=== PATIENT | female | born 1970 | race Caucasian/White ===

== ENCOUNTER 2023-09-19 16:32 | Emergency (ER) | payer BC, SELFPAY ==
--- NOTE | 2023-09-19 16:44 | PC.NURSE ---
pt up to desk stating that she cant stand someone in the lobby talking on the phone and is afraid to get covid from all the people. states is going to another hospital
== END 2023-09-19 16:44 | disposition left against medical advice (07) ==
PROVIDERS: PCP Internal Medicine
DX: Z53.21 Procedure and treatment not carried out due to patient leaving prior to being seen by health care provider (principal)
CPT/HCPCS: 99199

== ENCOUNTER 2023-09-20 08:26 | Inpatient (IN) | payer OTHER, SELFPAY ==
--- NOTE | ~2023-09-20 | MR_ITS ---
MRI of the abdomen: Clinical indication: Pancreatitis. Technique: Coronal SSFSE ARC, WATER:coronal LAVA-FLEX, Coronal 2D FIESTA FatSat, Axial SSFSE BH ARC, Axial 3D DualEcho BH, Axial SSFSE-IR, Axial DWI b=500, Axial 2D FIESTA FatSat, pre and dynamic postco ntrast Axial LAVA ARC, postcontrast Coronal In and Opposed phase LAVA FLEX. Following intravenous adm inistration of 11 cc MultiHance gadolinium, T1-weighted fat-sat imaging was performed in the axial an d coronal planes. Correlation made with CT scan dated 09/20/2023. Findings: There is diffuse signal drop off in the liver on out of phase images relative to in phase i mages, consistent with diffuse fatty infiltration. No focal hepatic mass seen. Gallbladder is distend ed, without evidence of gallstone or wall thickening. Common bile duct demonstrates mild diffuse dila tation at 8 mm, with tapering distally. There is probable mild inflammatory change about, and fullnes s of the the pancreatic head, consistent with acute pancreatitis. No pancreatic necrosis evident. No pseudocyst evident. Pancreatic duct is nondilated. Spleen, adrenal glands, and kidneys are unremarkable. Impression: Fullness of the pancreatic head with mild inflammatory change, suggestive of acute pancreatitis. Panc reatic neoplasm felt to be less likely. Correlate clinically. Consider follow-up exam as indicated. Diffuse fatty infiltration of liver. Distended gallbladder with mild common bile duct dilatation. This could be related to underlying acut e pancreatitis. Reviewed, dictated and finalized at location . [facility]Y Impression: Fullness of the pancreatic head with mild inflammatory change, suggestive of ac cheesh-na pancreatitis. Pancreatic neoplasm felt to be less likely. Correlate clinica lly. Consider follow-up exam as indicated. Diffuse fatty infiltration of liver. Distended gallbladder with mild common bile duct dilatation. This could be rela lazaro to underlying acute pancreatitis.
--- NOTE | ~2023-09-20 | US_ITS ---
US abdomen limited INDICATION: Nausea, vomiting and diarrhea. PROCEDURE: Realtime right upper abdominal ultrasound. COMPARISON: No prior studies for comparison. FINDINGS: Pancreas is not well visualized due to bowel gas. Pancreatic duct is dilated measuring 0.56 cm. Liver echotexture is increased, consistent with fatty infiltration. There is normal directiona l flow in the portal vein. The gallbladder is normal without stones, gallbladder wall thickening or pericholecystic fluid. Comm on bile duct measures 8 mm. No sonographic Guzman's sign. IMPRESSION: 1: Mildly dilated pancreatic and common bile ducts. No obstructing stone or mass is identified. Consi jordan correlation with MRCP. 2: Hepatic steatosis. Reviewed, dictated and finalized at location B. MIXER IMPRESSION: 1: Mildly dilated pancreatic and common bile ducts. No obstructing stone or mas s is identified. Consider correlation with MRCP. 2: Hepatic steatosis.
--- NOTE | ~2023-09-20 | CT_ITS ---
EXAMINATION: CT abdomen pelvis w con DATE: 09/20/2023 14:06 INDICATION: Abdominal pain TECHNIQUE: Computed tomography (CT) of the abdomen and pelvis was performed with 100 cc Omnipaque 350 intravenous contrast. The dose-length product was 225.83 mGy-cm. Automated exposure control and iter ative reconstruction technique were employed. COMPARISON: None. FINDINGS: Lung bases are unremarkable. Heart size normal. No significant pleural or pericardial effus ion. There is thickening of the pancreatic head which is heterogeneously hypovascular with mild surro unding fatty infiltration. There is thickening of the adjacent duodenum. There are small mesenteric l ymph nodes nearby. Fatty infiltration of the liver. The spleen, adrenal glands and kidneys are normal . Gallbladder is present. Nonobstructive bowel pattern. No significant vascular abnormality. IMPRESSION: 1. Abnormal masslike thickening of the pancreatic head which is hypodense with adjacent mesenteric in filtration and duodenal thickening. Considerations include sequela of acute pancreatitis versus pancr eatic neoplasm. 2: Fatty infiltration of the liver. Reviewed, dictated and finalized at location B. R AND RECOVERY SUPERVISOR IMPRESSION: 1. Abnormal masslike thickening of the pancreatic head which is hypodense with adjacent mesenteric infiltration and duodenal thickening. Considerations includ e sequela of acute pancreatitis versus pancreatic neoplasm. 2: Fatty infiltration of the liver.
[2023-09-20 08:30] VITALS: BP 116/82; PULSE 104; RESP 20; TEMP 36.4; O2SAT 98
--- NOTE | 2023-09-20 12:32 | ED.NAVMDI ---
HPI - Nausea/Vomiting/Diarrhea General Chief complaint: Nausea/Vomiting/Diarrhea Stated complaint: NVD Time Seen by Provider: 09/20/23 11:22 Source: patient Mode of arrival: ambulatory Limitations: no limitations History of Present Illness HPI Narrative: 53 yo female with PMH breast cancer (Jul 2018) s/p double mastectomy and reconstructive surgery presents with abdominal pain of several months duration. She states it started in February and is worse when she eats, though particularly fried foods. She thought it was similar to a gallbladder attack she experienced in her 20s at which point she was told she had sludge. No cholecystectomy. Hence, why she modified her diet over the past few months. Nevertheless, she continues to experience symptoms a few times per week. Starting over the past few days, it has become more frequent and more intense. She has a decreased appetite and hasn't eaten in 3 days. She trialed milk of magnesia. Bending at the waist or lying in the position helps slightly. Pain radiates to the left and through the back. She has the urge to have a bowel movement but without stooling. No fevers though she is going through menopause so experiences hot flashes. She had a stool that was white mucous, no blood. Related Data Home Medications Medication Instructions Recorded Confirmed No Home Medications 09/20/23 09/20/23 Allergies Allergy/AdvReac Type Severity Reaction Status Date / Time No Known Allergies Allergy Unverified 09/20/23 18:20 [facility] Past Medical History Medical History Eczema History of breast cancer Malignant neoplasm of breast (female), unspecified site Surgical History Surgical History History of appendectomy History of bilateral mastectomy (07/2018) Family History Family History Father Family history of chronic obstructive pulmonary disease Family history of dementia Mother Family history of lung cancer Social History Social History Social History: Code status: Full code. Smoking status: Former smoker Smoking end date: 10/18/17 Alcohol intake: current Drinks per week: 6 Substance use: former Substance use type: marijuana Lack of Transportation: No Lack of Food: Never True Current Housing: I Have Housing Concerned About Future Housing: No Difficulty Paying Gas/Electric Bills: No Difficulty Paying for Meds: No Currently Unemployed: No Education: Trade/Vocational Certificate Difficulty w/ Childcare or Family Care: No Spiritual care concerns: No Exam Narrative: GENERAL: Well-appearing, well-nourished, and in no acute distress. HEAD: Normocephalic, atraumatic. EYES: PERRLA and EOMI. ENT: Nares clear, no rhinorrhea or epistaxis. NECK: Supple. CHEST: Speaksin full sentences. No respiratory distress. HEART: Tachycardic rate and rhythm. ABDOMEN: Soft, , nondistended, TTP throughout, especially LLQ and RUQ. Guzman sign negative EXTREMITIES: Normal range of motion. No edema. SKIN: Warm, dry, no rash. NEURO: No focal deficits. Alert and oriented x3. Observed ambulating with steady gait. PSYCH: Normal mood and affect. Course Vital Signs Vital signs: Vital Signs Temperature 97.5 F L 09/20/23 08:30 Pulse Rate 104 H 09/20/23 08:30 Respiratory Rate 20 09/20/23 08:30 Blood Pressure 116/82 09/20/23 08:30 Pulse Oximetry 98 09/20/23 08:30 Oxygen Delivery Room Air 09/20/23 08:30 Temperature 98 F 09/22/23 14:06 Pulse Rate 82 09/22/23 14:06 Respiratory Rate 16 09/22/23 14:06 Blood Pressure 124/71 09/22/23 14:06 Pulse Oximetry 96 09/22/23 14:06 Oxygen Delivery Room Air 09/21/23 20:00 Oxygen Flow Rate 2 09/21/23 09:45 MDM - Nausea/Vomiting/Diarrhea MDM Narrative M
--- NOTE | 2023-09-20 12:49 | ECG_ITS ---
Measurements Intervals [place] Rate: 87 P: 55 NV: 121 QRS: 71 QRSD: 86 T: 58 QT: 374 QTc: 452 Interpretive Statements SINUS RHYTHM NORMAL ELECTROCARDIOGRAM MINIMAL ST DEPRESSION [0.025+ mV ST DEPRESSION] NO PREVIOUS ECG AVAILABLE FOR COMPARISON Electronically Signed On 09-20-2023 15:29:34 MANAGER OF MEDICAL by Casper Davey M.D.
[2023-09-20] MEDS: ONDANSETRON INJ 4 MG/2 ML VIAL IV PUSH (13:30)
[2023-09-20] MEDS: SODIUM CHLORIDE 0.9% IV 1,000 ML 999 ML IV CONT (13:30)
[2023-09-20 13:31] LABS: Basophils Absolute Auto 0.1 K/mm3 (0.0-0.1); Basophils Percent Auto 0.7 % (0.2-1.2); Eosinophils Absolute Auto 0.1 K/mm3 (0-0.3); Eosinophils Percent Auto 1.3 % (0-4.4); Hematocrit 41.8 % (37.0-47.0); Immature Granulocyte Absolute 0.03 K/mm3 (0.00-0.031); Immature Granulocyte Percent A 0.3 % (0-0.5); Lymphocytes Absolute Auto 1.59 K/mm3 (0.9-3.2); Lymphocytes Percent Auto 18.4 % (18.3-44.2); Mean Corpuscular HGB Conc 33.5 g/dl (32-36); Mean Corpuscular Hemoglobin 34.7 pg (26-34); Mean Corpuscular Volume 103.5 fl (80-100); Mean Platelet Volume 10.4 fl (7.4-10.4); Monocytes Absolute Auto 0.8 K/mm3 (0.1-0.6); Monocytes Percent Auto 8.9 % (2.6-8.5); Neutrophils Absolute Auto 6.1 K/mm3 (1.3-6.7); Neutrophils Percent Auto 70.4 % (45.5-73.1); Platelet Count Result 150 k/mm3 (150-375); Red Blood Count 4.04 M/mm3 (4.2-5.4); Red Cell Distribution Width 14.3 % (11.5-14.5); White Blood Count 8.6 K/mm3 (4.5-10.0)
[2023-09-20 13:40] VITALS: BP 143/84; PULSE 88; RESP 18; O2SAT 95
[2023-09-20 13:45] LABS: Alanine Aminotransferase 37 U/L (6-35); Albumin Level 3.8 g/dL (3.5-5.1); Alkaline Phosphatase 232 U/L (38-126); Anion Gap 10 mmol/L (8-16); Aspartate Amino Transferase 119 U/L (14-36); Bilirubin,Total 1.9 mg/dL (0.2-1.3); Blood Urea Nitrogen 4 mg/dL (7-17); Calcium 9.1 mg/dL (8.4-10.2); Carbon Dioxide 27 mmol/L (22-30); Chloride 101 mmol/L (98-107); Estimated CRCL calculation 116 ml/min; Estimated Glomerular Filt Rate > 60; Glucose 81 mg/dL (65-110); Lipase 1279 U/L (23-300); Potassium 3.9 mmol/L (3.4-5.0); Sodium 138 mmol/L (137-145)
[2023-09-20 13:54] LABS: Troponin I < 0.012 ng/mL (0.000-0.034)
[2023-09-20 14:07] LABS: Bacteria Urine 3+ /hpf; Need Manual Microscopic Reviewed; Non Pathogenic Casts 0-2; Squamous Epithelial Cell Urine Few /hpf (Few)
[2023-09-20 14:07] LABS: Influenza A QL RT-PCR Negative (Negative); Influenza B QL RT-PCR Negative (Negative); SARS-CoV-2 RNA PCR Negative (Negative)
[2023-09-20 14:14] LABS: Appearance Urine Cloudy (Clear); Bilirubin Urine 2+ (Negative); Blood Urine Negative (Negative); Color Urine Orange (Yellow); Glucose Urine UA Negative (Negative); Ketones Urine 1+ mg/dL (Negative); Leukocyte Esterase Ur 1+ LEU/UL (Negative); Nitrate Urine Positive (Negative); Protein Urine 1+ mg/dL (Negative); Specific Grav Ur 1.028 (1.001-1.035)
[2023-09-20 14:15] LABS: Add Urine Microscopic? YES
[2023-09-20] MEDS: LACTATED RINGERS 1,000 ML 150 ML IV CONT (15:14)
[2023-09-20] MEDS: MORPHINE SULFATE (*CRX) 4 MG/ML INJ IV PUSH ×3 (15:17→20:41)
--- NOTE | 2023-09-20 15:57 | PM.IMHP ---
H&P: HPI History of Present Illness Date/Time: 09/20/23 15:45 Chief Complaint: Abdominal pain. Narrative: This is a very pleasant 53-year-old female with history of breast cancer who presented to the emergency department via private vehicle for evaluation of abdominal pain. The patient provides the following history. She reports having a gallbladder attack in her 20s and had a workup at that time where she was told that she had gallbladder sludge. She did not have any further recurrences of right upper quadrant pain until this summer. She cut fatty foods and fried foods out of her diet though she continues to have intermittent episodes of right upper quadrant discomfort. Over the past 1 week she has had increasing episodes with increasing intensity. She reports a squeezing and pressure-like pain in the right upper quadrant which radiates in a bandlike fashion under her breasts. The last several days it has started to radiate into the left upper quadrant. Associated symptoms include nausea and vomiting off and on for the last several days. Food makes her pain worse. She denies alleviating factors. She denies fever, chills, sweats, chest pain, shortness of breath, hematemesis, melena, and hematochezia. Pertinent labs today include a bilirubin of 1.9, AST 119, ALT 37, alkaline phosphatase 232, lipase 1279. CT of the abdomen and pelvis showed abnormal masslike thickening of the pancreatic head which is hyperdense with adjacent mesenteric inflammation duodenal thickening which could be sequela of acute pancreatitis versus pancreatic neoplasm. She has no known history of pancreatitis. She drinks alcohol socially and in moderation. No known history of hypertriglyceridemia. She is status post bilateral mastectomy for breast cancer in July 2018 which she reports was caught early. She has lost about 4 to 5 lb in the last week or so as she has not been eating much due to pain. She is being admitted in this setting for further treatment and evaluation. Review of Systems Review of Systems: Twelve systems were reviewed and are negative except for as per HPI. [facility] Past Medical History Medical History (Updated 09/20/23 @ 22:[address] PA-C) Eczema History of breast cancer Malignant neoplasm of breast (female), unspecified site Surgical History Surgical History (Updated 09/20/23 @ 22:[address] PA-C) History of appendectomy History of bilateral mastectomy (07/2018) Family History Family History Father Family history of chronic obstructive pulmonary disease Family history of dementia Mother Family history of lung cancer Social History Social History (Updated 09/20/23 @ 22:[address] PA-C) Social History: Code status: Full code. Smoking status: Former smoker Smoking end date: 10/18/17 Alcohol intake: current Drinks per week: 6 Substance use: former Substance use type: marijuana Lack of Transportation: No Lack of Food: Never True Current Housing: I Have Housing Concerned About Future Housing: No Difficulty Paying Gas/Electric Bills: No Difficulty Paying for Meds: No Currently Unemployed: No Education: Trade/Vocational Certificate Difficulty w/ Childcare or Family Care: No Spiritual care concerns: No Meds Home Medications and Allergies Home Medications Medication Instructions Recorded Confirmed Type No Home Medications 09/20/23 09/20/23 History Allergies Allergy/AdvReac Type Severity Reaction Status Date / Time No Known Allergies Allergy Unverified 09/20/23 18:20 Vital Signs Vital Signs - 24 hr 09/20/23 08:30 09/20/23 13:40 Temperature 97.5 F L Pulse Rate 104 H 88 Respiratory Rate 20 18 Blood Pressure 116/82 143/84 H Pulse Oximetry 98 95 Oxygen Delivery Room Air Exam Narrative: General: Well-developed female sitting up in bed in mild pain. Weight: 69.4
--- NOTE | 2023-09-20 17:52 | ADMGEN ---
This patient, Ashia Lang, was admitted to [facility] Surg Room 314-02. Patient/family oriented to hospital policies and general routines including ID bracelet, bed and alarms, visiting hours, pain management, procedures, bathroom and other care routines, personal items, smoking policy, room service/diet, and visiting hours. Information on how to activate the Rapid Response Team has been discussed. Patient/Family are encouraged to report perceived risks to care and to ask questions if they do not understand what they are told or what they should do.
[2023-09-20 18:09] VITALS: BMI 24.7
[2023-09-20 18:18] VITALS: BP 116/81; PULSE 92; RESP 16; TEMP 35.7; O2SAT 100
[2023-09-20 18:32] LABS: Cholesterol 174 mg/dL (0-200); HDL Direct 72 mg/dL; Triglycerides 89 mg/dL (<150)
[2023-09-20 18:36] LABS: LDL Cholesterol Direct 80 mg/dL
[2023-09-20 20:00] VITALS: O2SAT 96
[2023-09-20 20:52] VITALS: BP 122/80; PULSE 100; RESP 16; TEMP 36.9; O2SAT 96
[2023-09-21] MEDS: SODIUM CHLORIDE 0.9% IV 1,000 ML 100 ML IV CONT (00:16)
[2023-09-21] MEDS: MORPHINE SULFATE (*CRX) 4 MG/ML INJ IV PUSH ×6 (00:18→21:24)
[2023-09-21 04:29] VITALS: BP 105/67; PULSE 102; RESP 16; TEMP 37.1; O2SAT 96
[2023-09-21 08:26] LABS: Hepatitis B Surface Antigen Negative (Negative)
[2023-09-21 08:31] LABS: HAV RESULT Negative (Negative); Hepatitis B Core IgM Result Negative (Negative)
[2023-09-21 08:43] LABS: Hepatitis C Virus Antibody Negative (Negative)
[2023-09-21 09:12] LABS: Alanine Aminotransferase 38 U/L (6-35); Albumin Level 2.9 g/dL (3.5-5.1); Alkaline Phosphatase 173 U/L (38-126); Anion Gap 9 mmol/L (8-16); Aspartate Amino Transferase 130 U/L (14-36); Bilirubin,Total 1.2 mg/dL (0.2-1.3); Blood Urea Nitrogen 4 mg/dL (7-17); Calcium 8.2 mg/dL (8.4-10.2); Carbon Dioxide 23 mmol/L (22-30); Chloride 105 mmol/L (98-107); Estimated CRCL calculation 124 ml/min; Estimated Glomerular Filt Rate > 60; Glucose 41 mg/dL (65-110); Magnesium 1.7 mg/dL (1.6-2.3); Potassium 3.8 mmol/L (3.4-5.0); Sodium 137 mmol/L (137-145)
[2023-09-21] MEDS: DEXTROSE 50% 25 GM/50 ML SYRINGE IV PUSH (09:28)
[2023-09-21 09:40] VITALS: BP 137/88; PULSE 101; RESP 22; O2SAT 93
[2023-09-21 09:45] VITALS: O2SAT 93
[2023-09-21 09:59] LABS: Folic Acid 3.5 ng/mL (2.76->20)
[2023-09-21 10:07] LABS: Glucose Point of Care 236 mg/dl (65-105)
[2023-09-21 10:07] LABS: Glucose Point of Care 53 mg/dl (65-105)
[2023-09-21 10:13] LABS: Glucose Point of Care 113 mg/dl (65-105)
[2023-09-21] MEDS: PANTOPRAZOLE SODIUM IV 40 MG VIAL IV PUSH ×2 (11:47→21:24)
[2023-09-21] MEDS: DEXTROSE 5%/0.9% SOD CHL 1,000 ML 100 ML IV CONT ×2 (11:49→21:24)
[2023-09-21 12:05] LABS: Glucose Point of Care 66 mg/dl (65-105)
[2023-09-21 12:13] VITALS: BMI 21.1
[2023-09-21 12:47] LABS: Glucose Point of Care 82 mg/dl (65-105)
[2023-09-21 14:00] VITALS: BP 121/71; PULSE 108; RESP 18; TEMP 36.8; O2SAT 93
--- NOTE | 2023-09-21 15:58 | PM.IMPN ---
Progress Note: A&P Assessment and Plan (1) Pancreatitis: Code(s): K85.90 - Acute pancreatitis without necrosis or infection, unspecified Status: Acute Assessment and Plan: 09/21/2023: abdominal ultrasound showing mildly dilated pancreatic and common bile ducts, no obstructing stone or mass was identified, hepatic steatosis, gallbladder is normal without stones. CT of the abdomen and pelvis showing abnormal masslike thickening of the pancreatic head which is hypodense with adjacent enteric infiltration and duodenal thickening, fatty infiltration of the liver MRCP showed fullness of the pancreatic head with mild inflammatory change suggestive of acute pancreatitis, pancreatic neoplasm felt to be less likely, diffuse fatty infiltration of the liver, distended gallbladder with mild common bile duct dilatation patient was given 1 dose of Rocephin in the ED we check a procalcitonin white blood cell count 8.6 (2) Elevated LFTs: Code(s): R79.89 - Other specified abnormal findings of blood chemistry Status: Acute Assessment and Plan: 09/21/23: total bili 1.2 AST 130 ALT 38 alk-phos 173 will continue to trend (3) Abnormal urinalysis: Code(s): R82.90 - Unspecified abnormal findings in urine Status: Acute Assessment and Plan: 09/21/23: UA showing 1+ protein, 1+ ketones, positive nitrate, 2+ bili, 1+ leukocytes 3+ bacteria urine culture pending patient given 1 g of Rocephin in the ED we will continue Rocephin Time Spent With Patient Time with patient: Greater than 35 minutes Subjective Date/time seen: 09/21/23 15:58 Interval history: This is a 53-year-old female who presented to the hospital on 09/20/2023 with abdominal pain. Workup in the hospital included a CT of the abdomen and pelvis which showed an abnormal masslike thickening of the pancreatic and which is hyperdense with adjacent mesenteric inflammation duodenal thickening which could be acute pancreatitis versus pancreatic neoplasm. She also had an ultrasound her abdomen which showed a mildly dilated pancreatic and common bile duct, no obstructing stone or mass are identified, hepatic steatosis. MRCP showed fullness of the pancreatic head with mild inflammation suggestive of acute pancreatitis. Pancreatic neoplasm felt to be less likely, diffuse fatty infiltration of the liver, distended gallbladder with mild common bile dilatation, this could be related to her acute pancreatitis. She has no known history of pancreatitis. She does drink alcohol socially and moderation. No known history of high triglycerides. Of note she is status post bilateral mastectomy for breast cancer in 2018 which she has states was caught early. She has lost 45 lb in the last week but attributes that to not eating and having too much pain. patient was given 1 dose of Rocephin ED. On examination today patient is alert and oriented x4, lying in the bed. Vital signs are stable, she is afebrile, she is currently on room air. She states that her pain comes and goes and currently is fine. She denies any nausea, vomiting, diarrhea, abdominal pain, fever, chills shortness breath, chest pain. Labs today were essentially unremarkable except for a blood sugar that was reported as 41 on her lab, and transaminitis with AST of 130, ALT 38, alk-phos 173. She had a rapid response called on her while in MRCP due to low blood sugar of 53. They gave her 1 amp of D 50 and her blood sugar recovered to 236. recheck was 113. Patient was started on D5 NS at 100 mL. We will continue Accu-Cheks on her. Will continue to monitor labs. We will go ahead and start a clear liquid diet as tolerated and ice chips are okay. GI is consulted. Review of Systems Review of Systems: Twelve systems were reviewed and are negative except for as per HPI. Constitutional: Constitutional: Reports as per HPI and Reports no additional constitutional complaints Eyes: Eye
--- NOTE | 2023-09-21 16:42 | PC.NURSE ---
I have reviewed Nicole Martini LPN's chart and agree with her assessment and findings. Pt had hypoglycemic event earlier today. Pt had lab value blood glucose of 41. Nurse was notified of critical lab value. Nurse reported to this nurse and was advised to recheck bedside accucheck to verify. Pt had been taken off of the floor to MRI scan. Nurse went to MRI to recheck pt blood sugar. Pt had accucheck of 53. Nurse reported result and was advised to call a rapid due to pt location and lack of resources. Pt was treated in MRI holding area by rapid response team with 1 amp D50. Pt tolerated well and responded appropriately. Pt was rechecked within 15 minutes of treatment and blood sugar was 236. During this time vitals were obtained and pt was found to be 86% on room air. Pt was placed on 2L O2 and quickly returned to normal limits. Provider was notified and new orders were put in, Q6h accucheck and D5NS@100. Pt continues to be monitored for any changes in status.
--- NOTE | 2023-09-21 17:11 | WPDGICN ---
Assessment and Plan Assessment and plan (1) Pancreatitis: Code(s): K85.90 - Acute pancreatitis without necrosis or infection, unspecified Status: Acute Assessment and Plan: Her bilirubin is 1.9 at admission. Lipase was 1279. She has been told in the past that she has sludge in her gallbladder. The attacks of pain that she has been getting for the past few months are generally in the right upper quadrant and sometimes radiate to the back (2) Elevated LFTs: Code(s): R79.89 - Other specified abnormal findings of blood chemistry Status: Acute Assessment and Plan: She has not had problems liver enzymes prior to this admission. (3) Weight loss: Code(s): R63.4 - Abnormal weight loss Status: Acute Assessment and Plan: She has lost about 5 lb in last week or 2 because of inability to eat (4) History of breast cancer: Code(s): Z85.3 - Personal history of malignant neoplasm of breast Status: Acute Assessment and Plan: She has had bilateral mastectomy. A CT scan she had shown what appeared to be a mass in the head of the pancreas but MRI suggests this is pancreatitis and not likely to be neoplastic. Plan A scribe for her how biliary sludge causes pancreatitis. We will repeat her labs tomorrow morning. I suspect that we will need to perform an ERCP because of the recurrent attacks even if numbers have improved. I discussed ERCP technique. I explained the possible complications such as bleeding or perforation or more likely pancreatitis which develops in about 3% of individuals and can be severe, can result in prolonged hospitalization and very rarely the need for surgery. GI Consult Note Consult date/time: 09/21/23 17:11 HPI: Ashia Lang is a 53 year old female who was admitted with persistent abdominal pain and nausea. She has not been able to eat for several days because of lack of appetite. She has been having episodes like this since spring of this year but has become more persistent. She has lost about 5 lb. She has not had visible jaundice. She has no history of liver disease. She has been found have pancreatitis based on elevated lipase. Liver function studies also are elevated. Ultrasound does not show evidence of common bile duct stones or gall stones, but she was told about 30 years ago when she had a similar attack that she had sludge seen on her gallbladder. Over Memorial Day weekend she was miserable with attacks of pain that made her feel like she was in labor. Since then she has had frequent episodes like this that can last for hours minutes to hours. Her pain is still requiring morphine. Review of Systems Review of Systems: All systems reviewed & are unremarkable except as noted in HPI and below PMFSH Past Medical History Medical History (Updated 09/21/23 @ 17:34 by Kelvin Holloway MD) Eczema History of breast cancer Malignant neoplasm of breast (female), unspecified site Surgical History Surgical History History of appendectomy History of bilateral mastectomy (07/2018) Family History Family History Father Family history of chronic obstructive pulmonary disease Family history of dementia Mother Family history of lung cancer Social History Social History Social History: Code status: Full code. Smoking status: Former smoker Smoking end date: 10/18/17 Alcohol intake: current Drinks per week: 6 Substance use: former Substance use type: marijuana Lack of Transportation: No Lack of Food: Never True Current Housing: I Have Housing Concerned About Future Housing: No Difficulty Paying Gas/Electric Bills: No Difficulty Paying for Meds: No Currently Unemployed: No Education: Trade/Vocational Certificate Difficulty w/ Childcare or Family
[2023-09-21 17:44] LABS: Hematocrit 35.2 % (37.0-47.0); Mean Corpuscular HGB Conc 31.3 g/dl (32-36); Mean Corpuscular Hemoglobin 34.8 pg (26-34); Mean Corpuscular Volume 111.4 fl (80-100); Platelet Count Result 128 k/mm3 (150-375); Red Blood Count 3.16 M/mm3 (4.2-5.4); Red Cell Distribution Width 14.7 % (11.5-14.5); White Blood Count 6.9 K/mm3 (4.5-10.0)
[2023-09-21 18:19] LABS: Procalcitonin 0.1 ng/mL
[2023-09-21 19:08] LABS: Glucose Point of Care 115 mg/dl (65-105)
[2023-09-21 20:00] VITALS: O2SAT 97
[2023-09-21 21:21] VITALS: BP 127/76; PULSE 95; RESP 16; TEMP 36.6; O2SAT 97
[2023-09-21 23:54] LABS: Glucose Point of Care 93 mg/dl (65-105)
[2023-09-22] MEDS: HYDROcodone/acetaminophen (*CRX) 5-325 MG TABLET 1 TAB PO ×2 (00:06→06:42)
[2023-09-22 05:40] VITALS: BP 125/79; PULSE 86; RESP 16; TEMP 36.3; O2SAT 94
[2023-09-22] MEDS: DEXTROSE 5%/0.9% SOD CHL 1,000 ML 100 ML IV CONT (06:43)
[2023-09-22 06:54] LABS: Basophils Percent Auto 0.8 % (0.2-1.2); Eosinophils Absolute Auto 0.1 K/mm3 (0-0.3); Eosinophils Percent Auto 2.1 % (0-4.4); Hematocrit 32.7 % (37.0-47.0); Hemoglobin 10.6 g/dL (12.0-15.0); Immature Granulocyte Absolute 0.01 K/mm3 (0.00-0.031); Immature Granulocyte Percent A 0.2 % (0-0.5); Lymphocytes Absolute Auto 1.14 K/mm3 (0.9-3.2); Lymphocytes Percent Auto 22.1 % (18.3-44.2); Mean Corpuscular HGB Conc 32.4 g/dl (32-36); Mean Corpuscular Hemoglobin 34.9 pg (26-34); Mean Corpuscular Volume 107.6 fl (80-100); Mean Platelet Volume 10.5 fl (7.4-10.4); Monocytes Absolute Auto 0.6 K/mm3 (0.1-0.6); Neutrophils Absolute Auto 3.3 K/mm3 (1.3-6.7); Neutrophils Percent Auto 63.8 % (45.5-73.1); Platelet Count Result 120 k/mm3 (150-375); Red Blood Count 3.04 M/mm3 (4.2-5.4); Red Cell Distribution Width 14.2 % (11.5-14.5); White Blood Count 5.2 K/mm3 (4.5-10.0)
[2023-09-22 06:58] LABS: Glucose Point of Care 98 mg/dl (65-105)
--- NOTE | 2023-09-22 07:04 | WPDGIPROGNO ---
Progress Note: A&P Assessment and Plan (1) Pancreatitis: Code(s): K85.90 - Acute pancreatitis without necrosis or infection, unspecified Status: Acute Assessment and Plan: Her bilirubin is 1.9 at admission. Lipase was 1279. She has been told in the past that she has sludge in her gallbladder. The attacks of pain that she has been getting for the past few months are generally in the right upper quadrant and sometimes radiate to the back. CT scan showed a possible pancreatic head mass. MRCP shows that it is not a pancreatic mass but pancreatitis . No definite stones are seen in the bile duct. (2) Elevated LFTs: Code(s): R79.89 - Other specified abnormal findings of blood chemistry Status: Acute Assessment and Plan: She has not had problems liver enzymes prior to this admission. Explained it elevated LFTs suggest that she has common bile duct stones. (3) Weight loss: Code(s): R63.4 - Abnormal weight loss Status: Acute Assessment and Plan: She has lost about 5 lb in last week or 2 because of inability to eat (4) History of breast cancer: Code(s): Z85.3 - Personal history of malignant neoplasm of breast Status: Acute Assessment and Plan: She has had bilateral mastectomy. A CT scan she had shown what appeared to be a mass in the head of the pancreas but MRI suggests this is pancreatitis and not likely to be neoplastic. Plan I described for her how biliary sludge causes pancreatitis. We will repeat her labs tomorrow morning. I suspect that we will need to perform an ERCP because of the recurrent attacks even if numbers have improved. I discussed ERCP technique. I explained the possible complications such as bleeding or perforation or more likely pancreatitis which develops in about 3% of individuals and can be severe, can result in prolonged hospitalization and very rarely the need for surgery. if LFTs have normalized we may simply do a HIDA scan. She wants to 1st check with her insurance because she is afraid that she will not be able to afford any more procedures. Subjective Date/time seen: 09/22/23 07:04 her pain has decreased significantly. 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 She tolerated clear liquids. I discussed with her the the fact that we would probably perform a HIDA scan or, if LFTs remain elevated go straight to ERCP. She wants to check with her insurance company regarding coverage. Exam Const: General: cooperative and healthy appearing Orientation/consciousness: patient oriented x3 HENMT: Head: normal to inspection Ears: hearing grossly normal bilaterally Mouth: Yes Normal oral and palatal mucosa present Eyes: General: appearance normal, both eyes and all related structures Neck: Neck: normal visual inspection Chest: Chest palpation & inspection: normal inspection of the chest Resp: Effort & Inspection: normal respiratory effort Auscultation: clear to auscultation bilaterally Cardio: Rate: regular rate Rhythm: regular rhythm GI: Inspection: normal to inspection GI Palp: Yes abdominal tenderness ( Mildly tender epigastric and right upper quadrant), Yes Soft to palpation and Yes No hepatosplenomegaly present Auscultation: normal bowel sounds Skin: General skin exam: normal color and no jaundice Neuro: General: patient oriented x3 Speech: normal speech Objective Data Vital Signs Vital Signs: Vital Signs - 24 hr 09/21/23 09:40 09/21/23 14:00 09/21/23 09:45 Temperature 36.8 C Pulse Rate 101 H 108 H Respiratory Rate 22 H 18 Blood Pressure 137/88 121/71 Pulse Oximetry 93 93 93 Oxygen Delivery Nasal Cannula Nasal Cannula Oxygen Flow Rate 2 2 09/21/23 21:21 09/21/23 20:00 09/22/23 05:40 Temperature 36.6 C 36.3 C L Pulse Rate 95 86 Respiratory Rate 16 16 Blood Pressure 127/76 125/79 Pulse Oximetry 97 97 94 Oxygen Delivery Room Air Oxygen
[2023-09-22 07:08] LABS: Alkaline Phosphatase 151 U/L (38-126); Lipase 210 U/L (23-300)
[2023-09-22 08:24] LABS: Glucose Point of Care 121 mg/dl (65-105)
[2023-09-22] MEDS: PANTOPRAZOLE SODIUM IV 40 MG VIAL IV PUSH (08:59)
[2023-09-22 11:58] LABS: Glucose Point of Care 114 mg/dl (65-105)
[2023-09-22 14:06] VITALS: BP 124/71; PULSE 82; RESP 16; TEMP 36.6; O2SAT 96
--- NOTE | 2023-09-22 14:51 | PM.CNGS ---
Assessment and Plan Assessment and plan (1) Pancreatitis: Code(s): K85.90 - Acute pancreatitis without necrosis or infection, unspecified Status: Acute Assessment and Plan: Patient presenting with acute pancreatitis. Unclear etiology. No heavy alcohol use. Triglycerides are normal. She has had an abdominal ultrasound, CT of the abdomen and pelvis, and an MRCP that are negative for gallstones or sludge. The gallbladder distention on MRCP could definitely be from fasting as she had not eaten in nearly a week. GI is recommending to do an ERCP, but patient refused this morning. Her pancreatitis is resolving and she is tolerating a low fat diet. Without any imaging to suggest this is biliary in nature, there is no indication for any surgery at this time. (2) Elevated LFTs: Code(s): R79.89 - Other specified abnormal findings of blood chemistry Status: Acute Assessment and Plan: Trending down, total bilirubin 1.2 yesterday. No labs today. Direct bilirubin 0.0. Recommended the patient follow a low fat diet and she can follow-up as needed as an outpatient for further workup of her gallbladder with a HIDA scan if she continues to have recurrent symptoms. Patient understands and agrees with this. Plan I have discussed the patient's case and plan of care with Dr. Machuca. History of Present Illness Consult details Consult date: 09/22/23 Reason for consult: other (Pancreatitis) Requesting physician: Kelvin Holloway MD Narrative: This is a 53-year-old woman who we have been asked to see in surgical consultation for pancreatitis. She began having episodes of right upper quadrant abdominal pain about 7 months ago. She initially thought this was related to her gallbladder and began eating a low-fat diet. She continued to have episodes of right upper quadrant abdominal pain despite altering her diet. About a week ago, she had a more severe episode of right upper quadrant abdominal pain that radiated across her entire upper abdomen. Her pain began to radiate to the left upper quadrant over the next few days. This was more severe than previous episodes and she developed nausea, vomiting, and diarrhea. She was unable to keep any fluids or food down for a few days. She decided to come into the ER for evaluation 2 days ago. Workup in the ER showed elevated liver enzymes with a total bilirubin of 1.[address] scan of the abdomen and pelvis showed an abnormal masslike thickening of the pancreatic head which is hyperdense with adjacent mesenteric inflammation and duodenal thickening that could be a sequelae of acute pancreatitis verses pancreatic neoplasm. She also had a right upper quadrant abdominal ultrasound that showed a mildly dilated pancreatic duct and dilated common bile ducts, but no obstructing stone or mass identified, and hepatic steatosis. The gallbladder is completely normal with no stones or sludge. She then had an MRCP that showed fullness of the pancreatic head with mild inflammatory change suggestive of acute pancreatitis, fatty liver, and a distended gallbladder with mild common bile duct dilatation. No gallstones, sludge, or choledocholithiasis noted on MRCP. LFTs trended down with a total bilirubin of 1.2. Lipase normalized. GI was consulted and recommended proceeding with an ERCP this morning. The patient refused at the time. She also is refusing a HIDA scan due to concern of costs of all the tests she has had done while hospitalized. She is now seen on the medical floor. She denies having any abdominal pain today. She was started on a low fat diet and tolerated this well. She had some mild nausea, but this improved. No vomiting. Denies a history of pancreatitis. No heavy alcohol use. Triglycerides were normal on admission. She does not have any home medications. Review of Systems Review of Systems: All systems reviewed & are unremarkable except as noted in HPI and below PMFSH Past Medical History Medi
--- NOTE | 2023-09-22 15:12 | PM.DS ---
DS: Admitting Diagnosis Discharge Date 09/22/23 Admitting Diagnosis Pancreatitis DS: Discharge Diagnosis Discharge Diagnosis (1) Pancreatitis: Code(s): K85.90 - Acute pancreatitis without necrosis or infection, unspecified Status: Acute (2) Elevated LFTs: Code(s): R79.89 - Other specified abnormal findings of blood chemistry Status: Acute (3) Abnormal urinalysis: Code(s): R82.90 - Unspecified abnormal findings in urine Status: Acute DS: Summary Hospital Course Hospital Course: This a 53-year-old female with a past medical history of breast cancer that presented to the ED on 09/20/2023 due to abdominal pain.he reports having a gallbladder attack in her 20s and had a workup at that time where she was told that she had gallbladder sludge. She did not have any further recurrences of right upper quadrant pain until this summer. She cut fatty foods and fried foods out of her diet though she continues to have intermittent episodes of right upper quadrant discomfort.? CT abdomen pelvis revealing abnormal masslike thickening of the pancreatic head which?is hyperdense with adjacent mesenteric inflammation duodenal thickening which could be sequela of acute pancreatitis versus pancreatic neoplasm. labs on admission showed bilirubin of 1.9, AST 119, ALT 37, alkaline phosphatase 232, lipase 1279. she was started on IV fluids and treated for pancreatitis. GI consulted due to elevated LFTs. MRCP showed fullness of the pancreatic head with mild inflammatory change suggestive of acute pancreatitis, pancreatic neoplasm felt to be less likely, diffuse fatty infiltration of the liver, distended gallbladder with mild common bile duct dilatation. GI recommended ERCP although patient was not sure if she wanted an invasive procedure at this time. General surgery evaluated patient and believes that it would be safe to evaluate patient as an outpatient. Discussed this with both General surgery nurse practitioner and GI and may have both agreed to follow patient as an outpatient as necessary. Patient will likely in the future need cholecystectomy due to what looks like a long history of gallbladder complications. Lipase improved as well as LFTs during hospital stay. Diet advanced and patient tolerated well. Labs vital signs are stable and she is medically cleared for discharge at this time. Time Spent with Patient Time attestation: Total time spent providing and/or coordinating discharge services: Exam Narrative: GENERAL: Comfortable, no acute distress HENMT: moist mucous membranes EYES: EOM intact b/l NECK: no lymphadenopathy RESPIRATORY: clear to auscultation CARDIO: RRR GI: soft, nontender, bowel sounds present SKIN: no rashes EXTREMITIES: no edema, redness or tenderness DS: Data Data Completed and Pending Labs on day of discharge: Labs from last 24 hours 09/22/23 09/22/23 09/22/23 11:56 08:14 06:29 WBC 5.2 RBC 3.04 L Hgb 10.6 L Hct 32.7 L MCV 107.6 H MCH 34.9 H MCHC 32.4 RDW 14.2 Plt Count 120 L MPV 10.5 H Immature Gran % (Auto) 0.2 Neut % (Auto) 63.8 Lymph % (Auto) 22.1 Taney % (Auto) 11.0 H Eos % (Auto) 2.1 Baso % (Auto) 0.8 Lymph # (Auto) 1.14 Taney # (Auto) 0.6 Eos # (Auto) 0.1 Baso # (Auto) 0.0 Abs Immat Gran (auto) 0.01 Absolute Neuts (auto) 3.3 Absolute Nucleated RBC 0.0 Nucleated RBC % 0.0 POC Capillary Glucose 114 H 121 H Direct Bilirubin Alkaline Phosphatase 151 H Lipase 210 Procalcitonin 09/22/23 09/21/23 09/21/23 05:40 23:50 18:29 WBC RBC Hgb Hct MCV MCH MCHC RDW Plt Count MPV Immature Gran % (Auto) Neut % (Auto) Lymph % (Auto) Taney % (Auto) Eos % (Auto) Baso % (Auto) Lymph # (Auto) Taney # (Auto) Eos # (Auto) Baso # (Auto) Abs Immat Gran (auto) Absolute Neuts (auto) Absolute Nucleated RBC Nuclea
== END 2023-09-22 15:42 | disposition home or self-care (01) | DRG 440 ==
LOC: ANHED 12:31 → ANH3MEDSUR 17:52
PROVIDERS: Nurse Practitioner Acute Care; Physician Assistant; Admitting Provider Student in an Organized Health Care Education/Training Program; Emergency Provider Student in an Organized Health Care Education/Training Program; PCP Internal Medicine; Visit Provider Internal Medicine Critical Care Medicine
DX: K85.90 Acute pancreatitis without necrosis or infection, unspecified (principal); R79.89 Other specified abnormal findings of blood chemistry; R82.90 Unspecified abnormal findings in urine; Z20.822 Contact with and (suspected) exposure to COVID-19; Z87.891 Personal history of nicotine dependence; Z85.3 Personal history of malignant neoplasm of breast; Z90.13 Acquired absence of bilateral breasts and nipples
CPT/HCPCS: 36415; 74177; 74183; 76376; 76705; 80053; 80061; 80074; 81001; 82248; 82607; 82746; 82948; 83690; 83735; 84075; 84145; 84484; 85025; 85027; 87077; 87086; 87186; 87636; 93005; 96361; 96374; 99285; A9270; A9577; C9113; J0696; J2270; J2405; J7030; J7042; J7120; Q9967

== ENCOUNTER 2024-11-30 07:33 | Outpatient (CLI) | payer OTHER, SELFPAY ==
--- OUTSIDE RECORDS SUMMARY | 2024-11-30 07:39 | XMS_ITS | Patient Health Summary ---
Author Organization [facility] Address [address] [place] [address] Care Team Providers Care Prep Person Name Role Phone ChristinaGabe hines Gayathri DO Primary Care Provider [phone] Svetlana Jimenez RN Unavailable Unavailable Note from [facility],non-owned Affiliates and Associated Physician Practices is amultiple site organization consisting of ambulatory clinics and hospital sitesin [place], [place], [place] and [place]. This disclosure is being madepursuant to the Care Everywhere program and may not contain all information available regarding this patient. Last updated 18.[facility] Allergies No known active allergies Medications * Be aware that medications may not be up to date on this document. Alwaysverify current medications with the patient. * hydrocodone-acetaminophen (NORCO) 5-325 MG tablet(Started 11/13/2015) Take 1-2 Tabs by mouth every 4 hours as needed Active Problems No known active problems Social History Tobacco Use Types Packs/Day Years Used Date Smoking Tobacco: Some Days Cigarettes 0.5 14 Started: 11/12/2010 Tobacco Cessation:Ready to Q uit: No; Counseling Given: Yes Alcohol Use Standard Drinks/Week Comments Not Asked 0 (1 standard drink = 0.6 oz pur e alcohol) Sex and Gender Information Value Date Recorded Sex Assigned at Not on file Gender Identity Not on file Sexual Orientation Not on file Last Filed Vital Signs Vital Sign Reading Time Taken Comments Blood Pressure 100/64 11/13/2015 1:10 PM TECHNICAL PROFESSIONAL Pulse 61 11/13/2015 1:10 PM TECHNICAL PROFESSIONAL Temperature 37 C (98.6 F) 11/13/2015 1:10 PM TECHNICAL PROFESSIONAL Respiratory Rate 17 11/13/2015 1:10 PM TECHNICAL PROFESSIONAL Oxygen Saturation 98% 11/13/2015 1:10 PM TECHNICAL PROFESSIONAL Inhaled Oxygen Concentration - - Weight 70.8 kg (156 lb) 11/12/2015 6:03 PM TECHNICAL PROFESSIONAL Height 168.9 cm (5' 6.5 ) 11/12/2015 6:03 PM TECHNICAL PROFESSIONAL Body Mass Index 24.8 11/12/2015 6:03 PM TECHNICAL PROFESSIONAL Procedures * LAB RESULTS ORDER(Performed 11/15/2015) * CARDIAC RHYTHM STRIP ORDER(Performed 11/15/2015) * PATHOLOGY TISSUE EXAM (STL)(Performed 11/12/2015) Performed for Other acute appendicitis * LAPAROSCOPIC APPENDECTOMY(Performed 11/12/2015) * CT ABDOMEN PELVIS W CONTRAST(Performed 11/12/2015) Performed for RLQ abdominal pain, Leukocytosis, unspecified elevated WBC count * HCG URINE QUALITATIVE(Performed 11/12/2015) * URINALYSIS REFLEX MICROSCOPIC REFLEX CULTURE(Performed 11/12/2015) * CULTURE URINE(Performed 11/12/2015) * HCG URINE QUALITATIVE - POINT OF CARE(Performed 11/12/2015) * BASIC METABOLIC PANEL (CALCIUM TOTAL)(Performed 11/12/2015) * CBC W AUTO DIFFERENTIAL(Performed 11/12/2015) * LACTIC ACID BLOOD(Performed 11/12/2015) Results * LAB RESULTS ORDER (11/15/2015 9:21 PM TECHNICAL PROFESSIONAL) Narrative 11/15/2015 9:21 PM TECHNICAL PROFESSIONAL Ordered by an unspecified provider. Scanned Document LAB - THERAPEUTIC DR UG MONITORING ORDERABLES * CARDIAC RHYTHM STRIP ORDER (11/15/2015 9:21 PM TECHNICAL PROFESSIONAL) Narrative 11/15/2015 9:21 PM TECHNICAL PROFESSIONAL Ordered by an unspecified provider. Scanned Document CARDIAC SERVICES ORD ERABLES * GROSS + MICRO EXAM (STL) (11/12/2015 10:26 PM TECHNICAL PROFESSIONAL) Case Report Surgical Pathology Report Case: [id number] Authorizing Provider: Joey River MD Collected: 11/12/2015 10:26 PM Ordering Location: [facility] Received: 11/13/2015 08:21 AM Pathologist: Vania Reddy MD Specimen: Appendix, appendix 11/14/2015 12:41 PM TECHNICAL PROFESSIONAL [facility] Final Diagnosis 1. Appendix, excision: -- Acute suppurative appendicitis and periappendicitis GM/alj 11/14/2015 12:41 PM [facility] Gross Description The specimen is received with the patient's name and labeled appendix. The specimen consists of an appendix with a grayish-white surface exudate and on section blood and soft material is present. There are no focal lesions or masses noted. Mechanical Specialist sections are submitted in a single cassette A1. 11/14/2015 12:41 PM [facility] Microscopic Description Microscopic examination reveals section of appendix with acute suppurative appendicitis and antonio appendicitis. There is no evidence of atypia or malignancy. /alj 11/14/2015 12:41 PM [facility] Microbiology ENTIRE APPENDIX / Unknown 11/12/2015 10:26 PM TECHNICAL PROFESSIONAL 11/13/2015 8:21 AM TECHNICAL PROFESSIONAL Joey River MD LAB - PATHOLOGY/CYTO LOGY ORDERABLES Performing Organization Address [facility] Co de Phone Number [facility] [address] [place] [address] * CT ABDOMEN AND PELVIS WITH IV CONTRAST (11/12/2015 7:25 PM TECHNICAL PROFESSIONAL) Anatomical Region Laterality Modality Abdomen, Pelvis Computed Tomogra phy 11/12/2015 7:50 PM TECHNICAL PROFESSIONAL Impressions 11/12/2015 7:59 PM TECHNICAL PROFESSIONAL 1. Wall thickening of the proximal portion of the appendix which measures up to 11 mm in diameter with mild surrounding inflammatory fat stranding consistent with acute appendicitis. No evidence of appendiceal rupture or abscess formation. Narrative 11/12/2015 7:59 PM TECHNICAL PROFESSIONAL EXAMINATION: Computed Tomography (CT) of the abdomen and pelvis with contrast HISTORY: Right lower quadrant abdominal pain and leukocytosis. TECHNIQUE: CT of the abdomen and pelvis was performed with contrast Omnipaque 350, 100 mL according to standard protocol. COMPARISON: No prior study is available for comparison. FINDINGS: The lung bases are clear. The heart size is normal. The liver and gallbladder are normal. The spleen and pancreas are normal. The adrenal glands and kidneys are normal. The stomach and small bowel appear normal. There is circumferential wall thickening of the proximal portion of the appendix which measures up to 11 mm in diameter with mild surrounding inflammatory fat stranding consistent with acute appendicitis (image 86 of series 2 and image 31 of series 601). The distal portion of the appendix is relatively collapsed and appears normal. There is mild sigmoid colonic diverticulosis without evidence of diverticulitis. No intraperitoneal free air or free fluid is identified. There is a small leiomyoma in the uterine fundal wall. No lymphadenopathy is identified. The vascular structures are normal. There are bilateral breast implants. The osseous structures are intact. Procedure Note Kirill Alvarado MD - 11/12/2015 EXAMINATION: Computed Tomography (CT) of the abdomen and pelvis with contrast HISTORY: Right lower quadrant abdominal pain and leukocytosis. TECHNIQUE: CT of the abdomen and pelvis was performed with contrast Omnipaque 350, 100 mL according to standard protocol. COMPARISON: No prior study is available for comparison. FINDINGS: The lung bases are clear. The heart size is normal. The liver and gallbladder are normal. The spleen and pancreas are normal. The adrenal glands and kidneys are normal. The stomach and small bowel appear normal. There is circumferential wall thickening of the proximal portion of the appendix which measures up to 11 mm in diameter with mild surrounding inflammatory fat stranding consistent with acute appendicitis (image 86 of series 2 and image 31 of series 601). The distal portion of the appendix is relatively collapsed and appears normal. There is mild sigmoid colonic diverticulosis without evidence of diverticulitis. No intraperitoneal free air or free fluid is identified. There is a small leiomyoma in the uterine fundal wall. No lymphadenopathy is identified. The vascular structures are normal. There are bilateral breast implants. The osseous structures are intact. IMPRESSION 1. Wall thickening of the proximal portion of the appendix which measures up to 11 mm in diameter with mild surrounding inflammatory fat stranding consistent with acute appendicitis. No evidence of appendiceal rupture or abscess formation. Bernardo Tenorio MD CT ORDERABLES * HCG URINE QUALITATIVE (11/12/2015 6:33 PM TECHNICAL PROFESSIONAL) hCG Qualitative Urine Negative Negative 11/12/2015 6:44 PM TECHNICAL PROFESSIONAL [facility] Urine URINE / Unknown Collection / Unknown 11/12/2015 6:33 PM TECHNICAL PROFESSIONAL 11/12/2015 6:35 PM TECHNICAL PROFESSIONAL Bernardo Tenorio MD LAB - URINALYSIS ORD ERABLES [facility] [address] [place] [address] * (ABNORMAL) URINALYSIS ROUTINE W/REFLEX TO CULTURE (11/12/2015 6:32 PM TECHNICAL PROFESSIONAL) Color UA Yellow Straw, Yellow, Dark Yellow 11/12/2015 6:48 PM TECHNICAL PROFESSIONAL [facility] Clarity UA Cloudy 11/12/2015 6:48 PM TECHNICAL PROFESSIONAL [facility] Specific [place] UA 1.013 1.005 - 1.030 11/12/2015 6:48 PM TECHNICAL PROFESSIONAL [facility] pH UA 6.5 5.0 - 8.0 pH 11/12/2015 6:48 PM TECHNICAL PROFESSIONAL [facility] Protein UA Negative Negative 11/12/2015 6:48 PM TECHNICAL PROFESSIONAL [facility] Blood UA Negative Negative 11/12/2015 6:48 PM TECHNICAL PROFESSIONAL [facility] Leukocyte UA Trace(A) Negative 11/12/2015 6:48 PM TECHNICAL PROFESSIONAL [facility] Nitrite UA Negative Negative 11/12/2015 6:48 PM TECHNICAL PROFESSIONAL [facility] Glucose UA Negative Negative 11/12/2015 6:48 PM TECHNICAL PROFESSIONAL [facility] Ketone UA 2+(A) Negative 11/12/2015 6:48 PM TECHNICAL PROFESSIONAL [facility] Bilirubin UA Negative Negative 11/12/2015 6:48 PM TECHNICAL PROFESSIONAL [facility] Urobilinogen UA 0.2 0.1 - 1.0 EU/dL 11/12/2015 6:48 PM TECHNICAL PROFESSIONAL [facility] WBC UA Auto 2-5 0-2, 2-5 # /hpf 11/12/2015 6:48 PM TECHNICAL PROFESSIONAL [facility] RBC UA Auto 5-10(A) 0-2, 2-5 # /hpf 11/12/2015 6:48 PM TECHNICAL PROFESSIONAL [facility] Epithelial Cell UA Auto 5-10(A) 0-2, 2-5 # /hpf 11/12/2015 6:48 PM TECHNICAL PROFESSIONAL [facility] Bacteria UA Auto 2+(A) None seen 11/12/2015 6:48 PM TECHNICAL PROFESSIONAL [facility] Hyaline Casts UA Auto 2-5(A) 0 - 2 #/lpf 11/12/2015 6:48 PM TECHNICAL PROFESSIONAL [facility] Reflex Status Culture to follow 11/12/2015 6:48 PM TECHNICAL PROFESSIONAL [facility] Urine URINE SPECIMEN OBTAINED BY CLEAN CATCH PROCEDURE / Unknown Collection / Unknown 11/12/2015 6:32 PM TECHNICAL PROFESSIONAL 11/12/2015 6:35 PM TECHNICAL PROFESSIONAL Bernardo Tenorio MD LAB - URINALYSIS ORD ERABLES Performing Organization Address [facility] Co de Phone Number [facility] [address] [place] [phone] * CULTURE URINE (11/12/2015 6:32 PM TECHNICAL PROFESSIONAL) Pathologist [facility] Culture 10,000-50,000 CFU/mL urogenital brent MATT 11/14/2015 6:11 AM TECHNICAL PROFESSIONAL [facility] MICROBIOLOGY Urine URINE SPECIMEN OBTAINED BY CLEAN CATCH PROCEDURE / Unknown Collection / Unknown 11/12/2015 6:32 PM TECHNICAL PROFESSIONAL 11/12/2015 6:35 PM TECHNICAL PROFESSIONAL Bernardo Tenorio MD LAB - MICROBIOLOGY O RDERABLES Performing Organization Address [facility] Co de Phone Number [facility] MICROBIOLOGY [address] [phone] * HCG URINE QUALITATIVE - POINT OF CARE (IP) (11/12/2015 6:31 PM TECHNICAL PROFESSIONAL) Pathologist [facility] HCG Qual Urine Negative Negative [facility] POCT TESTING QC Verified Yes Yes [facility] POC T TESTING Urine specimen (specimen) URINE / Unknown 11/12/2015 6:31 PM TECHNICAL PROFESSIONAL Bernardo Tenorio MD LAB - POINT OF CARE ORDERABLES Performing Organization Address [facility] de Phone Number [facility] POCT TESTING [address] [place] [id number] [place] [address] * (ABNORMAL) CBC W AUTO DIFFERENTIAL (11/12/2015 6:24 PM TECHNICAL PROFESSIONAL) WBC 16.6(H) 4.4 - 10.7 x10^9/L 11/12/2015 6:35 PM TECHNICAL PROFESSIONAL [facility] WBC Corrected x10^9/L 11/12/2015 6:35 PM TECHNICAL PROFESSIONAL [facility] RBC 4.22 3.80 - 5.20 x10^12/L 11/12/2015 6:35 PM [facility] Hemoglobin 12.6 12.0 - 15.6 gm/dL 11/12/2015 6:35 PM [facility] Hematocrit 37.1 35.9 - 45.5 % 11/12/2015 6:35 PM [facility] MCV 87.9 80.7 - 98.3 fl 11/12/2015 6:35 PM [facility] MCH 29.9 26.7 - 34.0 pg 11/12/2015 6:35 PM [facility] MCHC 34.0 30.8 - 35.9 gm/dL 11/12/2015 6:35 PM [facility] Platelet Count 231 153 - 416 x10^9/L 11/12/2015 6:35 PM [facility] RDW-CV 12.8 12.1 - 14.9 % 11/12/2015 6:35 PM [facility] MPV 9.6 9.4 - 12.9 fl 11/12/2015 6:35 PM [facility] Neutrophils % 70.8 44.0 - 73.0 % 11/12/2015 6:35 PM [facility] Lymphocytes % 20.7 20.0 - 43.0 % 11/12/2015 6:35 PM [facility] Monocytes % 6.5 5.0 - 13.0 % 11/12/2015 6:35 PM [facility] Eosinophils % 1.1 0.0 - 6.0 % 11/12/2015 6:35 PM [facility] Basophils % 0.5 0.0 - 2.0 % 11/12/2015 6:35 PM [facility] Immature Granulocytes 0.4 0 - 1 % 11/12/2015 6:35 PM [facility] Neutrophil Absolute 11.74(H) 2.01 - 7.14 x10^9/L 11/12/2015 6:35 PM [facility] Lymphocytes Absolute 3.42 1.07 - 3.94 x10^9/L 11/12/2015 6:35 PM [facility] Monocytes Absolute 1.07 0.26 - 1.07 x10^9/L 11/12/2015 6:35 PM [facility] Eosinophils Absolute 0.18 0 - 0.47 x10^9/L 11/12/2015 6:35 PM [facility] Basophils Absolute 0.09(H) 0 - 0.08 x10^9/L 11/12/2015 6:35 PM [facility] Immature Granulocytes Absolute 0.06 0.00 - 0.06 x10^9/L 11/12/2015 6:35 PM [facility] nRBC Auto 0 /100 WBC 11/12/2015 6:35 PM [facility] Blood BLOOD SPECIMEN / Unknown Venipuncture / Unknown 11/12/2015 6:24 PM TECHNICAL PROFESSIONAL 11/12/2015 6:30 PM [facility] MD LAB - HEMATOLOGY ORD ERABLES [facility] [address] [place] [address] * BASIC METABOLIC PANEL (CALCIUM TOTAL) (11/12/2015 6:24 PM TECHNICAL PROFESSIONAL) Pathologist [facility] Glucose 105 74 - 106 mg/dL 11/12/2015 6:44 PM [facility] Sodium 138 136 - 145 mmol/L 11/12/2015 6:44 PM [facility] Potassium 3.5 3.5 - 5.1 mmol/L 11/12/2015 6:44 PM [facility] Chloride 105 98 - 107 mmol/L 11/12/2015 6:44 PM [facility] CO2 26 22 - 31 mmol/L 11/12/2015 6:44 PM [facility] Calcium 9.4 8.5 - 10.1 mg/dL 11/12/2015 6:44 PM [facility] Anion Gap 7 5 - 20 mmol/L 11/12/2015 6:44 PM [facility] BUN 8 7 - 21 mg/dL 11/12/2015 6:44 PM [facility] Creatinine 0.80 0.50 - 1.30 mg/dL 11/12/2015 6:44 PM [facility] eGFR by MDRD >60 >60 mL/min/1.7 3m2 11/12/2015 6:44 PM [facility] eGFR by MDRD >60 >60 mL/min/1.7 3m2 11/12/2015 6:44 PM [facility] Blood BLOOD SPECIMEN / Unknown Venipuncture / Unknown 11/12/2015 6:24 PM TECHNICAL PROFESSIONAL 11/12/2015 6:29 PM TECHNICAL PROFESSIONAL Bernardo Tenorio MD LAB - CHEMISTRY BHANU ROMERO [facility] [address] [place], [place] [id number] * LACTIC ACID BLOOD (11/12/2015 6:24 PM TECHNICAL PROFESSIONAL) [facility] Signature Lactic Acid 1.0 0.7 - 2.1 mmol/L 11/12/2015 6:49 PM TECHNICAL PROFESSIONAL [facility] Blood BLOOD SPECIMEN / Unknown Venipuncture / Unknown 11/12/2015 6:24 PM TECHNICAL PROFESSIONAL 11/12/2015 6:29 PM TECHNICAL PROFESSIONAL Bernardo Tenorio MD LAB - CHEMISTRY BHANU ROMERO Performing Organization Address City/[facility] Co de Phone Number [facility] [address] [place] [phone] Care Teams Prep Person Relationship Specialty Start Date End Date Gabe Ochoa DO PCP - General Internal Medicine 11/12/15 Svetlana Jimenez, porter luggage 11/13/15
--- OUTSIDE RECORDS SUMMARY | 2024-11-30 07:39 | XMS_ITS | Referral Summary ---
Author Organization [facility] Address [address] [place] [address] Care Team Providers Care Preparer Making Department Name Role Phone DarianaGabe matamoros DO Primary Care Provider [phone] Svetlana Jimenez RN Unavailable Unavailable Source Comments [facility],non-owned Affiliates and Associated Physician Practices is amultiple site organization consisting of ambulatory clinics and hospital sitesin [place], [place], [place] and [place]. This disclosure is being madepursuant to the Care Everywhere program and may not contain all information available regarding this patient. Last updated 18.[facility] Allergies No known active allergies Medications * Be aware that medications may not be up to date on this document. Alwaysverify current medications with the patient. Medication Sig Dispensed Refills Start Date End Date Status hydrocodone-acetaminop hen (NORCO) 5-325 MG tablet Take 1-2 Tabs by mouth every 4 hours as needed 40 Tab 0 11/13/2015 Active Active Problems No known active problems Social [...] Comments Blood Pressure 100/64 11/13/2015 1:10 PM [employer] SUPERVISOR Pulse 61 11/13/2015 1:10 PM [employer] SUPERVISOR Temperature 37 C (98.6 F) 11/13/2015 1:10 PM [employer] SUPERVISOR Respiratory Rate 17 11/13/2015 1:10 PM [employer] SUPERVISOR Oxygen Saturation 98% 11/13/2015 1:10 PM [employer] SUPERVISOR Inhaled Oxygen Concentration - - Weight 70.8 kg (156 lb) 11/12/2015 6:03 PM [employer] SUPERVISOR Height 168.9 cm (5' 6.5 ) 11/12/2015 6:03 PM [employer] SUPERVISOR Body Mass Index 24.8 11/12/2015 6:03 PM [employer] SUPERVISOR Functional Status Functional Status Response Date of Assess ment Is person deaf or have serious hearing difficult y? No 11/12/2015 Is person blind or have serious difficulty seein g? No 11/12/2015 Does person have serious dif ficulty walking/climbing stairs? No 11/12/2015 Does person have difficulty dressing/bathing? No 11/12/2015 Does person have difficulty doing errands alone? No 11/12/2015 Cognitive Status Response Date of Assessm ent Does person have difficulty concentrating/remembering/making decisions? No 11/12/2015 Plan of Treatment Not on file Advance Directives * Full Code (Latest Code Status on File) Date Activated Date Inactivated Comments 11/12/2015 11:43 PM 11/13/2015 2:40 PM Care Teams Preparer Making Department Relationship Specialty Start Date End Date Gabe Ochoa DO PCP - General Internal Medicine 11/12/15 Svetlana Jimenez, training and development assistant 11/13/15
--- OUTSIDE RECORDS SUMMARY | 2024-11-30 07:39 | XMS_ITS | Clinical Summary ---
Author Organization [facility] Address [address] [place] [address] Care Team Providers Care Psychiatric Orderly Name Role Phone DarianaGabe matamoros DO Primary Care Provider [phone] Svetlana Jmienez RN Unavailable Unavailable Source Comments [facility],non-owned Affiliates and Associated Physician Practices is amultiple site organization consisting of ambulatory clinics and hospital sitesin [place], [place], [place] and [place]. This disclosure is being madepursuant to the Care Everywhere program and may not contain all information available regarding this patient. Last updated 18.[facility] Allergies No known active allergies Medications * Be aware that medications may not be up to date on this document. Alwaysverify current medications with the patient. Medication Sig Dispensed Refills Start Date End Date Status hydrocodone-acetaminop hen (NORCO) 5-325 MG tablet Take 1-2 Tabs by mouth every 4 hours as needed 40 Tab 0 11/13/2015 Active Active Problems No known active problems Family History Medical History Relation Name Comments Cancer - Other Mother Relation Name Status Comments Father Alive Mother Social History Tobacco Use Types Packs/Day Years [...] Comments Blood Pressure 100/64 11/13/2015 1:10 PM PRIMARY CARE MD Pulse 61 11/13/2015 1:10 PM PRIMARY CARE MD Temperature 37 C (98.6 F) 11/13/2015 1:10 PM PRIMARY CARE MD Respiratory Rate 17 11/13/2015 1:10 PM PRIMARY CARE MD Oxygen Saturation 98% 11/13/2015 1:10 PM PRIMARY CARE MD Inhaled Oxygen Concentration - - Weight 70.8 kg (156 lb) 11/12/2015 6:03 PM PRIMARY CARE MD Height 168.9 cm (5' 6.5 ) 11/12/2015 6:03 PM PRIMARY CARE MD Body Mass Index 24.8 11/12/2015 6:03 PM PRIMARY CARE MD Plan of Treatment Health Maintenance Due Date Last Done Comments COLOGUARD (AGES 45-75) - COL ON CA SCREENING 1970 COLON MONITORING 1970 COLONOSCOPY - COLON CA SCREENING 1970 CT COLONOGRAPHY - COLON CA SCREENING 1970 Colorectal Cancer Screening 1970 FIT - COLON CA SCREENING 1970 FLEX SIG - COLON CA SCREENING 1970 LIPID TESTING 1970 MAMMOGRAM 1970 PAP SMEAR 1970 HIV SCREENING 1985 HEPATITIS C SCREENING 05/13/1988 DTAP/TDAP/TD VACCINES (1 - Tdap) 1989 HEPATITIS B VACCINE (1 of 3 - 19+ 3-dose series) 1989 PNEUMOCOCCAL VACCINE 50+ (1 of 2 - PCV) 1989 PNEUMOCOCCAL VACCINE (1 of 2 - PCV) 1989 ZOSTER VACCINE (1 of 2) 2020 COVID-19 VACCINE (1 - 2023-2 5 season) 2024 INFLUENZA VACCINE (#1) 2024 DEPRESSION SCREENING 10/18/2024 HIB VACCINE Aged Out No longer eligi ble based on patient's age to complete this topic HPV VACCINE Aged Out No longer eligi ble based on patient's age to complete this topic MENINGOCOCCAL (Group B) VACCINE Aged Out No longer eligible based on patient's age to complete this topic MENINGOCOCCAL VACCINE Aged Out No vincenzo antonette eligible based on patient's age to complete this topic Advance Directives * Full Code (Latest Code Status on File) Date Activated Date Inactivated Comments 11/12/2015 11:43 PM 11/13/2015 2:40 PM Care Teams Psychiatric Orderly Relationship Specialty Start Date End Date Gabe Ochoa DO PCP - General Internal Medicine 11/12/15 Svetlana Jimenez, plaster block layer 11/13/15
[2024-11-30 08:12] LABS: Basophils Absolute Auto 0.1 K/mm3 (0.0-0.1); Basophils Percent Auto 1.1 % (0.2-1.2); Eosinophils Absolute Auto 0.4 K/mm3 (0-0.3); Eosinophils Percent Auto 4.6 % (0-4.4); Hematocrit 38.6 % (37.0-47.0); Hemoglobin 12.3 g/dL (12.0-15.0); Immature Granulocyte Absolute 0.04 K/mm3 (0.00-0.031); Immature Granulocyte Percent A 0.4 % (0-0.5); Lymphocytes Absolute Auto 3.27 K/mm3 (0.9-3.2); Lymphocytes Percent Auto 36.6 % (18.3-44.2); Mean Corpuscular HGB Conc 31.9 g/dl (32-36); Mean Corpuscular Hemoglobin 29.6 pg (26-34); Mean Platelet Volume 9.3 fl (7.4-10.4); Monocytes Absolute Auto 0.9 K/mm3 (0.1-0.6); Monocytes Percent Auto 9.8 % (2.6-8.5); Neutrophils Absolute Auto 4.2 K/mm3 (1.3-6.7); Neutrophils Percent Auto 47.5 % (45.5-73.1); Platelet Count Result 381 k/mm3 (150-375); Red Blood Count 4.15 M/mm3 (4.2-5.4); Red Cell Distribution Width 14.2 % (11.5-14.5); White Blood Count 8.9 K/mm3 (4.5-10.0)
[2024-11-30 08:27] LABS: Alanine Aminotransferase 26 U/L (6-35); Alkaline Phosphatase 247 U/L (38-126); Anion Gap 9 mmol/L (4-12); Aspartate Amino Transferase 46 U/L (14-36); Bilirubin,Total 0.6 mg/dL (0.2-1.3); Blood Urea Nitrogen 7 mg/dL (7-17); Calcium 9.9 mg/dL (8.4-10.2); Carbon Dioxide 24 mmol/L (22-30); Chloride 105 mmol/L (98-107); Cholesterol 169 mg/dL (0-200); Estimated Glomerular Filt Rate > 60; Glucose 150 mg/dL (65-110); HDL Direct 48 mg/dL; Potassium 4.4 mmol/L (3.4-5.0); Sodium 138 mmol/L (137-145); Triglycerides 129 mg/dL (<150)
[2024-11-30 08:28] LABS: Amylase 90 U/L (30-110); Lipase 94 U/L (23-300)
[2024-11-30 08:38] LABS: LDL Cholesterol Direct 97 mg/dL
[2024-11-30 09:06] LABS: HIV 1/2 Ab P24 Ag Result Negative (Negative)
[2024-11-30 09:30] LABS: Vitamin D 25 Hydroxy 13.9 ng/mL
[2024-11-30 10:01] LABS: Hepatitis C Virus Antibody Negative (Negative)
[2024-11-30 11:33] LABS: Erythrocyte Sedimentation Rate 56 mm/hr (0-20)
== END 2024-11-30 07:34 | disposition home or self-care (01) ==
LOC: ANHLAB 07:34
PROVIDERS: PCP Internal Medicine; Referring Provider Nurse Practitioner Family; Visit Provider Nurse Practitioner
DX: E78.5 Hyperlipidemia, unspecified (principal); R63.4 Abnormal weight loss; E55.9 Vitamin D deficiency, unspecified; R10.11 Right upper quadrant pain; R10.32 Left lower quadrant pain; R10.84 Generalized abdominal pain; Z13.29 Encounter for screening for other suspected endocrine disorder
CPT/HCPCS: 36415; 80053; 80061; 82150; 82306; 83690; 84443; 85025; 85652; 86703; 86803; G0432

== ENCOUNTER 2024-12-14 08:51 | Outpatient (CLI) | payer OTHER, SELFPAY | END 2024-12-14 08:52 | disposition home or self-care (01) | PROVIDERS: PCP Internal Medicine; Visit Provider Nurse Practitioner Family | DX: R79.89 Other specified abnormal findings of blood chemistry (principal); K76.0 Fatty (change of) liver, not elsewhere classified | CPT/HCPCS: 74177; Q9967 ==